=== PATIENT | male | born 1980 | race Caucasian/White ===

== ENCOUNTER 2018-01-27 05:26 | Emergency (ER) | payer SELFPAY ==
[~2018-01-27] VITALS: Ht 185.4 cm; Wt 84.6 kg
[2018-01-27 05:29] VITALS: BP 131/77
== END 2018-01-27 06:03 | disposition left against medical advice (07) ==
LOC: ED 05:59
DX: Z53.21 Procedure and treatment not carried out due to patient leaving prior to being seen by health care provider (principal)